=== PATIENT | female | born 1970 | race Two or more races ===

== ENCOUNTER 2016-04-16 05:24 | Emergency (ER) | payer MEDICAID ==
[2016-04-16] MEDS ORDERED: PHENAZOPYRIDINE 100 MG TABLET PO STA (05:30)
[2016-04-16] MEDS ORDERED: CEPHALEXIN 250 MG CAPSULE PO STA (05:30)
[2016-04-16] MEDS ORDERED: PHENAZOPYRIDINE 100 MG TABLET PO ONE (05:32)
[2016-04-16] MEDS ORDERED: CEPHALEXIN 250 MG CAPSULE PO ONE (05:32)
== END 2016-04-16 05:57 | disposition home or self-care (01) ==
DX: N39.0 Urinary tract infection, site not specified (principal); I10 Essential (primary) hypertension; E05.90 Thyrotoxicosis, unspecified without thyrotoxic crisis or storm
CPT/HCPCS: 81001; 81025; 99283; A9270

== ENCOUNTER 2016-07-28 08:10 | Outpatient (CLI) | payer MEDICAID ==
[2016-07-28 13:48] LABS: BASOPHILS # (AUTO) 0.1 10^3/uL (0.0-0.1); BASOPHILS % (AUTO) 0.9 %; EOSINOPHILS # (AUTO) 0.2 10^3/uL (0.0-0.7); EOSINOPHILS % (AUTO) 2.3 %; HCT - HEMATOCRIT 33.9 % (37.0-47.0); HGB - HEMOGLOBIN 11.3 g/dL (12.0-16.0); LYMPHOCYTES # (AUTO) 3.2 10^3/uL (1.5-3.5); LYMPHOCYTES % (AUTO) 45.3 %; MEAN CORPUSCULAR HEMOGLOBIN 23.3 pg (27.0-31.0); MEAN CORPUSCULAR HGB CONC 33.3 g/dL (32.0-36.0); MEAN CORPUSCULAR VOLUME 70.1 fL (81.0-99.0); MEAN PLATELET VOLUME 9.4 fL (7.9-10.8); MONOCYTES # (AUTO) 0.7 10^3/uL (0.0-1.0); MONOCYTES % (AUTO) 9.3 %; NEUTROPHILS % (AUTO) 42.2 %; RED BLOOD COUNT 4.83 10^6/uL (4.20-5.40); RED CELL DISTRIBUTION WIDTH 15.4 % (12.0-15.0); UNCORRECTED WHITE BLOOD COUNT 7.1 x10^3/uL; WHITE BLOOD COUNT 7.1 x10^3/uL (4.8-10.8)
[2016-07-28 13:59] LABS: ALBUMIN/GLOBULIN RATIO 1.4 (1.0-2.2); BILIRUBIN,TOTAL 0.6 mg/dL (0.2-1.0); BUN - BLOOD UREA NITROGEN 12 mg/dL (6-20); CARBON DIOXIDE - CO2 23 mmol/L (21-32); CHLORIDE 110 mmol/L (101-111); CHOL/HDL RATIO 3.4 (<4.4); CHOLESTEROL 187 mg/dL; CREATININE 0.7 mg/dL (0.4-1.0); GFR - MDRD 91 (>89); GLUCOSE 78 mg/dL (70-100); HDL CHOLESTEROL 55 mg/dL; POTASSIUM 3.6 mmol/L (3.5-5.0); SODIUM 139 mmol/L (135-145); TOTAL PROTEIN 6.5 g/dL (6.7-8.2); TRIGLYCERIDES 28 mg/dL
[2016-07-28 14:04] LABS: PLATELET ESTIMATE, MANUAL NORMAL (130-450,000) (NORMAL); PLATELET MORPHOLOGY NORMAL APPEARANCE (NORMAL)
[2016-07-28 14:27] LABS: THYROID STIMULATING HORMONE 1.01 uIU/mL (0.34-5.60)
[2016-07-28 14:32] LABS: LDL CHOLESTEROL,DIRECT 119 mg/dL
== END 2016-07-28 08:11 | disposition home or self-care (01) ==
LOC: LAB 08:10
PROVIDERS: ATTEND Family Medicine
DX: Z00.00 Encounter for general adult medical examination without abnormal findings (principal); R00.2 Palpitations; B19.20 Unspecified viral hepatitis C without hepatic coma; D56.3 Thalassemia minor
CPT/HCPCS: 36415; 80053; 80061; 84439; 84443; 85025

== ENCOUNTER 2016-11-07 08:00 | Outpatient (CLI) | payer MEDICAID ==
[2016-11-07 20:19] LABS: BILIRUBIN,DIRECT 0.1 mg/dL (0.1-0.5); BILIRUBIN,TOTAL 0.7 mg/dL (0.2-1.0); TOTAL PROTEIN 6.7 g/dL (6.7-8.2)
== END 2016-11-07 08:01 | disposition home or self-care (01) ==
LOC: LAB.N 08:00
PROVIDERS: ATTEND Internal Medicine Transplant Hepatology
DX: B18.2 Chronic viral hepatitis C (principal)
CPT/HCPCS: 36415; 80076; 87522

== ENCOUNTER 2017-09-17 19:14 | Emergency (ER) | payer MEDICAID ==
[2017-09-17] MEDS ORDERED: ONDANSETRON 4 MG/2 ML VIAL IVP STA (19:27)
[2017-09-17] MEDS ORDERED: SODIUM CHLORIDE 0.9% 1,000 ML IV ONE (19:27)
[2017-09-17 19:54] LABS: ALBUMIN 4.2 g/dL (3.2-5.5); ALBUMIN/GLOBULIN RATIO 1.1 (1.0-2.2); BILIRUBIN,TOTAL 0.7 mg/dL (0.2-1.0); CALCIUM 9.5 mg/dL (8.5-10.3); CREATININE 0.8 mg/dL (0.4-1.0); TOTAL PROTEIN 8.1 g/dL (6.7-8.2)
[2017-09-17] MEDS ORDERED: KETOROLAC 15 MG/ML VIAL IVP STA (20:03)
[2017-09-17] MEDS ORDERED: METOCLOPRAMIDE 10 MG/2 ML VIAL IVP STA (20:03)
--- NOTE | 2017-09-17 20:04 | ED Physician Documentation ---
PD HPI ABD PAIN - Stated complaint Stated Complaint: VOMITING - Chief complaint Chief Complaint: Abd Pain - History obtained from History obtained from: Patient - History of Present Illness Timing - onset: Last night (She abruptly started having vomiting and diarrhea with central abdominal cramping starting around midnight last night while finishing up [id number] it did not taste quite right. She has been vomiting ever since and feels severely nauseous. The diarrhea is abating. There is no fever and no recent travel.) Review of Systems Constitutional: denies: Fever, Chills Cardiac: denies: Chest pain / pressure, Palpitations Respiratory: denies: Dyspnea, Cough GI: denies: Hematemesis, Bloody / black stool PD PAST MEDICAL HISTORY - Past Medical History Cardiovascular: Hypertension, Arrhythmia Endocrine/Autoimmune: HyPERthyroidism Psych: Depression, Anxiety, Bipolar disorder - Past Surgical History Past Surgical History: No - Present Medications Home Medications: Ambulatory Orders Medication Instructions Recorded Confirmed Venlafaxine ER [Effexor ER] 150 mg PO DAILY 04/16/16 04/16/16 clonazePAM [KlonoPIN] 0.5 mg PO BID PRN 04/16/16 04/16/16 Dextroamphetamine/Amphetamine 09/17/17 [Adderall 10 mg Tablet] Loperamide [Imodium] 2 mg PO QID PRN #10 capsule 09/17/17 Ondansetron HCl [Zofran] 4 mg PO Q6H PRN #10 tablet 09/17/17 lamoTRIgine [LaMICtal] 200 mg ORAL BID 09/17/17 09/17/17 - Allergies Allergies/Adverse Reactions: Allergies Allergy/AdvReac Type Severity Reaction Status Date / Time iodine Allergy Rash Verified 09/17/17 19:19 sulfamethoxazole Allergy Itching Verified 09/17/17 19:19 [From Bactrim] trimethoprim [From Bactrim] Allergy Itching Verified 09/17/17 19:19 - Social History Does the pt smoke?: No Smoking Status: Never smoker Does the pt drink ETOH?: Yes Does the pt have substance abuse?: Yes Substance Use and Type: Heroin - Immunizations Immunizations are current?: Yes - POLST Patient has POLST: No PD ED PE NORMAL - Vitals Vital signs reviewed: Yes - General General: Alert and oriented X 3, No acute distress - Cardiac Cardiac: RRR, No murmur - Respiratory Respiratory: No respiratory distress, Clear bilaterally - Abdomen Abdomen: Soft, Non tender - Neuro Neuro: Alert and oriented X 3, Normal speech Results - Vitals Vitals: Vital Signs - 24 hr 09/17/17 09/17/17 19:18 20:20 Temperature 36.3 C L Heart Rate 69 59 L Respiratory 18 15 Rate Blood Pressure 117/71 115/73 O2 Saturation 100 100 Oxygen O2 Source Room air - Labs Labs: Laboratory Tests 09/17/17 19:38 Sodium 138 Potassium 3.4 L Chloride 101 Carbon Dioxide 25 Anion Gap 12.0 BUN 14 Creatinine 0.8 Estimated GFR (MDRD) 77 L Glucose 135 H Calcium 9.5 Total Bilirubin 0.7 AST 26 ALT 16 Alkaline Phosphatase 56 Total Protein 8.1 Albumin 4.2 Globulin 3.9 Albumin/Globulin Ratio 1.1 Lipase 21 L PD MEDICAL DECISION MAKING - ED course ED course: 37-year-old woman with a acute syndrome consistent with gastroenteritis. Benign belly. She was administered antiemetics and IV fluids with resolution of her symptoms and remained nontender prior to discharge on reexamination. She was administered p.o. potassium for slightly low potassium and passed an oral challenge. She was given appendicitis precautions but this seems unlikely at this juncture. - Sepsis Event Vital Signs: Vital Signs - 24 hr 09/17/17 09/17/17 19:18 20:20 Temperature 36.3 C L Heart Rate 69 59 L Respiratory 18 15 Rate Blood Pressure 117/71 115/73 O2 Saturation 100 100 Oxygen O2 Source Room air Departure - Departure Disposition: 01 Home, Self Care Clinical Impression: Gastroenteritis Condition: Good Instructions: ED Gastroenteritis Non Infec Prescriptions: Loperamide [Imodium] 2 mg PO QID PRN #10 capsule PRN Reason: Diarrhea Ondansetron HCl [Zofran] 4 mg PO Q6H PRN #10 tablet PRN Reason: Nausea / Vomiting Comments: Return in 12 hours if not better, anytime if worsening or if new symptoms develop, especially if fever. Discharge Date/Time: 09/17/17 21:11
[2017-09-17 20:21] VITALS: BP 115/73
[2017-09-17] MEDS ORDERED: POTASSIUM BICARB 25 MEQ TABLET PO STA (20:39)
[2017-09-17] MEDS ORDERED: ONDANSETRON ODT 4 MG Prepack 2 TL STA (20:47)
== END 2017-09-17 21:11 | disposition home or self-care (01) ==
LOC: ED 19:14
DX: K52.9 Noninfective gastroenteritis and colitis, unspecified (principal)
CPT/HCPCS: 36415; 80053; 83690; 96361; 96374; 96375; 99283; A9270; J2765

== ENCOUNTER 2017-11-03 08:00 | Outpatient (CLI) | payer MEDICAID ==
[2017-11-03 13:01] LABS: ALBUMIN 3.7 g/dL (3.2-5.5); ALBUMIN/GLOBULIN RATIO 1.2 (1.0-2.2); ALKALINE PHOSPHATASE 53 IU/L (42-121); ALT ALANINE AMINOTRANSFERASE 13 IU/L (10-60); AST ASPARTATE AMINOTRANSFERASE 18 IU/L (10-42); BILIRUBIN,TOTAL 0.5 mg/dL (0.2-1.0); BUN - BLOOD UREA NITROGEN 13 mg/dL (6-20); CALCIUM 8.7 mg/dL (8.5-10.3); CARBON DIOXIDE - CO2 23 mmol/L (21-32); CHLORIDE 109 mmol/L (101-111); CHOL/HDL RATIO 3.1 (<4.4); CHOLESTEROL 178 mg/dL; CREATININE 0.7 mg/dL (0.4-1.0); GFR - MDRD 90 (>89); GLUCOSE 103 mg/dL (70-100); HDL CHOLESTEROL 58 mg/dL; LDL CHOLESTEROL,CALCULATED 103 mg/dL; LDL/HDL RATIO 1.8 (<4.4); SODIUM 138 mmol/L (135-145); TOTAL PROTEIN 6.9 g/dL (6.7-8.2); VLDL CHOLESTEROL 17 mg/dL
[2017-11-03 13:10] LABS: BASOPHILS # (AUTO) 0.1 10^3/uL (0.0-0.1); BASOPHILS % (AUTO) 1.2 %; EOSINOPHILS # (AUTO) 0.2 10^3/uL (0.0-0.7); EOSINOPHILS % (AUTO) 3.2 %; HGB - HEMOGLOBIN 11.3 g/dL (12.0-16.0); LYMPHOCYTES # (AUTO) 3.3 10^3/uL (1.5-3.5); LYMPHOCYTES % (AUTO) 47.5 %; MEAN CORPUSCULAR HEMOGLOBIN 22.3 pg (27.0-31.0); MEAN CORPUSCULAR HGB CONC 32.3 g/dL (32.0-36.0); MEAN CORPUSCULAR VOLUME 69.1 fL (81.0-99.0); MONOCYTES # (AUTO) 0.8 10^3/uL (0.0-1.0); MONOCYTES % (AUTO) 10.8 %; NEUTROPHILS # (AUTO) 2.6 10^3/uL (1.5-6.6); NEUTROPHILS % (AUTO) 37.3 %; PLT - PLATELET COUNT 377 10^3/uL (130-450); RED BLOOD COUNT 5.04 10^6/uL (4.20-5.40); RED CELL DISTRIBUTION WIDTH 15.8 % (12.0-15.0)
[2017-11-03 13:37] LABS: RBC MORPHOLOGY (MULTIPLE) 3+ ANISOCYTOSIS (NORMAL)
== END 2017-11-03 08:01 | disposition home or self-care (01) ==
LOC: LAB.N 08:00
DX: F31.81 Bipolar II disorder (principal)
CPT/HCPCS: 36415; 80053; 80061; 83721; 84443; 85025

== ENCOUNTER 2018-01-29 08:00 | Outpatient (CLI) | payer MEDICAID ==
[2018-01-29 13:42] LABS: THYROID STIMULATING HORMONE 0.51 uIU/mL (0.34-5.60)
[2018-01-29 13:46] LABS: FREE T4 (FREE THYROXINE) 0.89 ng/dL (0.58-1.64)
== END 2018-01-29 08:01 | disposition home or self-care (01) ==
LOC: LAB.N 08:00
PROVIDERS: ATTEND Family Medicine
DX: E05.90 Thyrotoxicosis, unspecified without thyrotoxic crisis or storm (principal)
CPT/HCPCS: 36415; 81599; 84439; 84443; 84481; 86800

== ENCOUNTER 2018-02-26 10:29 | Outpatient (CLI) | payer MEDICAID ==
[2018-02-26 13:08] LABS: THYROID STIMULATING HORMONE 0.08 uIU/mL (0.34-5.60)
[2018-02-26 13:10] LABS: FREE T4 (FREE THYROXINE) 0.88 ng/dL (0.58-1.64)
[2018-03-01 11:36] LABS: THYROID PEROXIDASE ANTIBODIES <1 IU/mL (<9)
== END 2018-02-26 23:59 | disposition home or self-care (01) ==
LOC: LAB.N 10:29
PROVIDERS: ATTEND Family Medicine
DX: E05.90 Thyrotoxicosis, unspecified without thyrotoxic crisis or storm (principal)
CPT/HCPCS: 36415; 84439; 84443; 84481; 86376; 86800

== ENCOUNTER 2018-10-07 | Outpatient (CLI) | payer MEDICAID | END 2018-10-07 23:59 | disposition home or self-care (01) | DX: Z13.9 Encounter for screening, unspecified (principal) | CPT/HCPCS: 36415; 80053; 80061; 83721; 84443; 85025 ==

== ENCOUNTER 2018-11-22 14:27 | Outpatient (CLI) | payer MEDICAID ==
--- NOTE | 2018-11-23 12:27 | Mammography Report ---
Reason: ROUTINE MAMMO Procedure Date: 11/22/2018 Accession Number: [id number] / [id number] Procedure: MGN - Screening Mammo Dig Bilat CPT Code: FULL RESULT: EXAM: Screening Mammo Dig Bilat DATE: 11/22/2018 2:55 PM CLINICAL HISTORY: Routine screening TECHNIQUE: (B) - Bilateral CC and MLO views were obtained. COMPARISON: 08/22/2014 PARENCHYMAL PATTERN: (VD) - The breasts demonstrate extremely dense parenchyma bilaterally, limiting the sensitivity of mammography. FINDINGS: No significant interval change on the left. There are no suspicious masses, calcifications, or areas of distortion. On the right there is a 1 cm nodule in the 9:00 position 7 cm posterior to the nipple. This may have been present on the prior mammogram but obscured by the dense breast tissue. No suspicious architectural distortion, skin thickening or microcalcifications on the right. IMPRESSION: Incomplete examination right breast. BI-RADS category 0. Negative left breast. RECOMMENDATION: (ADDUS) - Targeted ultrasound recommended. Right breast BI-RADS CATEGORY: (0) - Incomplete Examination - need additional evaluation. STANDARD QUALIFYING STATEMENTS: 1. This examination was not reviewed with the aid of Computer-Aided Detection (CAD). 2. A negative or benign imaging report should not preclude biopsy if clinically suspicious findings are present. 3. Dense breasts may obscure an underlying neoplasm. 4. This examination was reviewed without the aid of 3D breast imaging (tomosynthesis).
== END 2018-11-22 14:28 | disposition home or self-care (01) ==
LOC: DI.N 14:27
PROVIDERS: ATTEND Nurse Practitioner Gerontology
DX: Z12.31 Encounter for screening mammogram for malignant neoplasm of breast (principal); R92.8 Other abnormal and inconclusive findings on diagnostic imaging of breast
CPT/HCPCS: 77067

== ENCOUNTER 2018-12-08 09:57 | Outpatient (CLI) | payer MEDICAID ==
--- NOTE | 2018-12-08 11:32 | Ultrasound Report ---
Reason: ABN MAMMO - RT SPECIAL VIEWS Procedure Date: 12/08/2018 Accession Number: [id number] / [id number] Procedure: US - Breast Unilateral Limited CPT Code: FULL RESULT: EXAM: Breast Unilateral Limited DATE: 12/08/2018 10:45 AM CLINICAL HISTORY: Call back right breast ultrasound to evaluate abnormal right breast finding on recent screening mammogram ? COMPARISON: EXAM: 11/22/2018, 08/22/2014 TECHNIQUE: Targeted ultrasound was performed of the right breast in the area of clinical concern at 9 o'clock at nipple +5 cm and periareolar right breast. ?Color Doppler was employed as appropriate. ? FINDINGS: In the area of mammographic concern (posterior 9:00 position nipple +5-6 cm) there is a sonographically confirmed nonappearing cyst measuring 5 x 3 x 7 mm diameter. No further workup for this finding is required. There is an incidental subareolar indeterminate but benign-appearing sharply marginated wider than tall nonvascular hypoechoic right breast mass measuring 6 x 4 x 6 mm diameter for which a six-month follow-up 3-D mammogram and targeted right breast ultrasound will be recommended.. IMPRESSION: BI-RADS Category 3: Probably benign RECOMMENDATIONS: Six-month follow-up RIGHT breast 3-D mammogram and targeted right breast ultrasound for subareolar probable fibroadenoma. RADIA
== END 2018-12-08 09:58 | disposition home or self-care (01) ==
LOC: DI 09:57
PROVIDERS: ATTEND Nurse Practitioner Gerontology
DX: R92.8 Other abnormal and inconclusive findings on diagnostic imaging of breast (principal)
CPT/HCPCS: 76642

== ENCOUNTER 2018-12-20 08:00 | Outpatient (CLI) | payer MEDICAID ==
[2018-12-20 19:23] LABS: HEMOGLOBIN A1C 0.48 g/dL; HEMOGLOBIN A1C % 5.5 % (4.6-6.2)
[2018-12-20 19:33] LABS: PROLACTIN 12.16 ng/mL
== END 2018-12-20 23:59 | disposition home or self-care (01) ==
LOC: LAB.N 08:00
PROVIDERS: ATTEND Nurse Practitioner Psychiatric/Mental Health
DX: F31.81 Bipolar II disorder (principal)
CPT/HCPCS: 36415; 82306; 82607; 83036; 84146

== ENCOUNTER 2019-05-03 14:19 | Outpatient (CLI) | payer MEDICAID ==
[2019-05-03 21:39] VITALS: BP 138/91
--- NOTE | 2019-05-03 21:39 | SLEEP CARE CONSULTATION ---
Information from patient questionnaire entered by Shaylee Anaya. I have reviewed and concur with the information entered by Shaylee Anaya. This document represents the service I personally performed and the decisions made by me, Eli Alanis MD, [facility]. History of Present Illness Reason for Visit: New patient Chief Complaint: reports: Insomnia, Unrefreshed sleep, Excessive daytime sleepiness, Frequent awakenings at night Duration of Symptoms: 23 years Usual bedtime: 2697-4666 Time it takes to fall asleep: 5-10 minutes Snores at night: Yes Observed to quit breathing while asleep: No (a few times) Sleeps alone due to snoring: No Number of times waking at night: 3-5 Reasons for waking at night: reports: Bathroom, Other (hunger, bad dreams, anxiety) Toss, Turn, or Twitch while sleeping: Yes Recalls having dreams: Yes Usually gets out of bed at: [id number] Feels refreshed in the morning: No Morning headache: No Sleepy or fatigued during the day: Yes Ever fallen asleep while driving: No Takes day naps: Yes Dreams during day naps: Yes Prior sleep studies: No Additional HPI information: I had the pleasure of seeing Ms. Sanchez today regarding the possibility of her having a sleep disorder. As you know, she is a 48 year old lady who complains of insomnia for 23 years. The patient tells me that she normally goes to bed around 7 - 11 pm, and it takes her approximately 10 - 20 minutes to fall asleep. She has been told that she snores occasionally at night. She has never been observed to stop breathing in her sleep. Her spouse sleeps in the same bed. She can recall waking up on the average of 3 - 5 times during the night. Most of the time she wakes up because of anxiety with palpitations. She has never awakened because of her own snoring, choking, or having to gasp for air. There is a lot of tossing and turning in her sleep. No somniloquy (sleep talking) or somnambulism (sleep walking). Generally she can recall having dreams. In the morning she usually gets up out of the bed around 3 - 6 a.m. not feeling refreshed nor rested. She usually does not have a morning headache. During the day she complains of feeling sleepy and fatigued. Her score on Jackson Sleepiness Scale is 11 out of 24. She has never fallen asleep while driving nor has had any accident due to sleepiness. She usually takes naps during the day. Upon falling asleep during the day she reports having dreams. She reports having impaired concentration during the day. Subjective Initial Jackson Sleepiness Scale score: 11 Past Medical History Past Medical History: reports: Claustrophobia, Anemia (borderline), Anxiety, Asthma (when sick), Depression, Mood disorder, Attention deficit, Other (PTSD complex, agoraphobia) Social History The patient's occupation is not employed. Patient is Single and lives in [place]. Have you smoked in the past 12 months: Yes Cigarettes per day (20/pack): 5 (or less) Years of smokin (off and on) Smoking Pack Years: 3.0 Alcohol use: No Caffeine use: Yes Caffeine amount and frequency: 1 cup coffee/day Family History Family history of sleep disordered breathing: No (all siblings have insomnia) Allergies and Home Medications Drug allergies reviewed: Yes (Bactrim and iodine) Home medication list reviewed: Yes (Adderall, Effexor, Ativan, lamotrigine, melatonin) Review of Systems Weight gain over past 5 years: 25 Cardiovascular: reports: palpitations Respiratory: denies: shortness of breath, wheeze, sputum production, chronic cough, other Gastrointestinal: reports: heartburn Urinary: denies: incontinence, frequency, urgency, impotence, other Neurological: denies: headaches, seizure, head trauma, disorientation, speech dysfunction, gait or balance problems, fainting or unconsciousness, other Psychiatric: reports: Attention Deficit Hyperactivity, anxiety, depression, mood disorder, claustrophobia, other (PTSD complex, insomnia, transient, panic disorder) Ear/Nose/Throat: denies: nasal congestion, sinus problems, nose bleeds, dry mouth/throat, hoarseness, injury to nose, tonsillectomy, wisdom teeth removed, other Endocrine: reports: too hot or cold Musculoskeletal: denies: joint pain, neck pain, back pain, joint swelling, muscle pain or cramping, mobility problems, other Immunologic: denies: sneezing, rash, itching, allergies to food or environment, other Physical Exam Vital signs obtained and entered by: Dr. Alanis Blood Pressure: 138/91 Cuff size: regular Heart Rate: 88 O2 Saturation: 99 Height: 5 ft 3 in Weight: 160 lb Body Mass Index: 28.3 BMI Classification: Overweight Neck circumference: 13.5 Mood/affect: normal HEENT: No craniofacial malformation Nostrils: patent to airflow Turbinates: normal Septum: midline Mouth and throat: normal Soft palate: normal Hard palate: normal Uvula: normal Uvula visualization: 100% Mallampati Class I Tongue: normal in size Tonsils: small Chin and jaw: normal size and position Neck: normal w/o lymphadenopathy or thyromegaly Heart: regular rate and rhythm Lungs: clear bilaterally Abdomen: soft, non-tender Extremities: no edema or clubbing Neurologic: intact, no focal deficits Impression and Plan IMPRESSION: 1. Possible Obstructive Sleep Apnea-Hypopnea Syndrome, as suggested by history of snoring, frequent awakenings during the night, unrefreshed sleep, cognitive impairment, and daytime hypersomnolence. Pathophysiology of sleep-disordered breathing was discussed. I recommend proceeding to polysomnography for further evaluation. I informed the patient of what the sleep studies involve and after some discussion, she agreed to proceed. 2. Insomnia, due to underlying psychiatric disorders and excessive time spent in bed due to her having to go to bed early with her at 7 pm. Treatment is to reduce time spent in bed to the normal 8 hours, which means she should get out of bed at 3 am every day if she wants to go to bed at 7 pm. Plan: 1. Schedule an in-laboratory polysomnography or home sleep apnea test (HSAT). 2. Avoid long distance driving or when feeling sleepy. 3. Avoid alcohol, sedative and muscle relaxant around bedtime. 4. Quit smoking, at least in the evening. 5. Return in 1 to 2 weeks after the study to discuss results and initiate therapy. I spent 100% of this visit face to face with the patient with greater than 50% of this was spent time counseling the patient and coordination of care.
== END 2019-05-03 14:20 | disposition home or self-care (01) ==
LOC: SC 14:19
PROVIDERS: ATTEND Internal Medicine Pulmonary Disease
DX: G47.10 Hypersomnia, unspecified (principal); G47.8 Other sleep disorders; R06.83 Snoring; R41.89 Other symptoms and signs involving cognitive functions and awareness; G47.00 Insomnia, unspecified; E66.3 Overweight; Z68.28 Body mass index [BMI] 28.0-28.9, adult; F17.210 Nicotine dependence, cigarettes, uncomplicated
CPT/HCPCS: 99203; 99212

== ENCOUNTER 2019-05-15 19:30 | Outpatient (CLI) | payer MEDICAID | END 2019-05-15 23:59 | LOC: SC 19:30 | PROVIDERS: ATTEND Internal Medicine Pulmonary Disease | DX: G47.8 Other sleep disorders (principal); G47.10 Hypersomnia, unspecified; G47.00 Insomnia, unspecified | CPT/HCPCS: 95806 ==

== ENCOUNTER 2019-06-07 10:59 | Outpatient (CLI) | payer MEDICAID ==
--- NOTE | 2019-06-07 10:55 | SLEEP CARE CONSULTATION ---
Information from patient questionnaire entered by Jeri Victor. I have reviewed and concur with the information entered by Jeri Victor. This document represents the service I personally performed and the decisions made by me, Eli Alanis MD, [facility]. History of Present Illness Initial Hext Sleepiness Scale score: 11 Additional HPI information: To minimize the risk of COVID-19 exposure, we have the option to conduct your visit with me over the phone. I will be able to discuss your health and offer medical advice. If you agree, we will bill your insurance. Do you agree to this telephone service: YES. HPI: Ms. Sanchez returned for follow up of the home sleep apnea test (HSAT) she had on 05/15/2019. The polysomnography showed that the test was normal. There was no evidence of sleep disordered breathing or hypoxemia. Heart rate was within normal limits. The patient was informed of these findings. I explained to her that the test was normal. The patient states that she is sleeping better and does not snore. Allergies and Home Medications Drug allergies reviewed: Yes Home medication list reviewed: Yes Review of Systems Review of systems same as previous: Yes Physical Exam Height: 5 ft 3 in Impression and Plan IMPRESSION: 1. Insomnia, improved. Previously it was due to excessive time spent in bed (the patient tried to go to bed early at 7 pm with her but did not get out of bed until 6 am). I reminded her to spend no more than 8 hours in bed. PLAN: 1. Maintain a regular wake up time and spend no more than 8 hours in bed at night. Avoid naps. 2. Quit smoking cigarettes 3. Return for follow up on as needed basis. I spent 100% of the 5 minute phone call with the patient with greater than 50% of this was spent time counseling the patient and coordination of care.
== END 2019-06-07 11:00 | disposition home or self-care (01) ==
LOC: SC 10:59
PROVIDERS: ATTEND Internal Medicine Pulmonary Disease
DX: G47.00 Insomnia, unspecified (principal)

== ENCOUNTER 2019-11-04 14:34 | Outpatient (CLI) | payer MEDICAID ==
--- NOTE | 2019-11-07 10:34 | Ultrasound Report ---
LIMITED ULTRASOUND OF RIGHT BREAST: 11/04/2019 CLINICAL: Patient returns for a 6 month follow up of the right breast. Comparison is made to exam dated: 12/08/2018 ultrasound - [facility]. Color flow ultrasound of the right breast 9 o'clock region was performed. Melendez scale images of the r eal-time examination were reviewed. There is a 0.7 cm x 0.5 cm x 0.3 cm wider than tall oval mass in the right breast at 9 o'clock resource teacher ior depth 5 cm from the nipple. This oval mass is hypoechoic with a well-defined boundary. This abn ormality is not significantly changed. Color flow imaging demonstrates that there is no vascularity present. There also is a 0.6 cm x 0.4 cm x 0.6 cm oval cyst in the right breast at 9 o'clock in the retroareol ar region. This oval cyst is anechoic. This abnormality is not significantly changed. Color flow i maging demonstrates that there is no vascularity present. IMPRESSION: PROBABLY BENIGN The 0.7 cm x 0.5 cm x 0.3 cm wider than tall oval mass in the right breast at 9 o'clock posterior dep th most likely is a fibroadenoma and is probably benign. The 0.6 cm x 0.4 cm x 0.6 cm oval cyst in the right breast at 9 o'clock in the retroareolar region is consistent with a simple cyst and is benign. A follow-up bilateral mammogram and a right breast ultrasound in 12 months is recommended to document two years of stability. Findings and recommendations were conveyed to the patient during today's visit. This exam was interpreted at Station ID: [id number]. Electronically Signed By: Frank Dye M.D. aty/:11/04/2019 17:29:45 Ultrasound BI-RADS: 3 Probably benign BI-RADS CATEGORY: (3) - 3 Mammo and [place] [id number] 12 month follow-up LATERALITY: (B)
--- NOTE | 2019-11-07 10:34 | Mammography Report ---
BILATERAL DIGITAL DIAGNOSTIC MAMMOGRAM 3D/2D: 11/04/2019 CLINICAL: 6 month follow-up of cysts. Patient returns today to evaluate a density in the right breast . Patient returns for a 6 month follow up of bilateral breasts. Comparison is made to exams dated: 12/08/2018 ultrasound, 11/22/2018 mammogram, and 08/22/2014 mammogra [facility]. The tissue of both breasts is heterogeneously dense. This may lowe r the sensitivity of mammography. There is a 0.8 cm oval mass in the right breast at 9 o'clock posterior depth. This is not significan tly changed and correlates with previous ultrasound findings. No other significant masses, calcifications, or other findings are seen in either breast. IMPRESSION: INCOMPLETE: NEEDS ADDITIONAL IMAGING EVALUATION The 0.8 cm oval mass in the right breast likely represents a fibroadenoma but remains indeterminate. An ultrasound is recommended to further evaluate and is scheduled to immediately follow this exam. This exam was interpreted at Station ID: [id number]. NOTE: For mammograms, a report in lay terms will be sent to the patient. Approximately 15% of breast malignancies will not be visualized mammographically. In the management of a palpable breast mass, a negative mammogram must not discourage biopsy of a clinically suspicious lesion. Electronically Signed By: Frank Dye M.D. aty/:11/04/2019 17:25:39 ACR BI-RADS Category 0: Incomplete [id number] PARENCHYMAL PATTERN: (D) - The breast(s) demonstrate(s) heterogeneously dense fibroglandular ross lucero. BI-RADS CATEGORY: (0) - 0 Ultrasound [id number] Immediate follow-up LATERALITY: (R)
== END 2019-11-04 14:35 | disposition home or self-care (01) ==
LOC: DI 14:34
PROVIDERS: ATTEND Nurse Practitioner
DX: N60.01 Solitary cyst of right breast (principal); N63.15 Unspecified lump in the right breast, overlapping quadrants
CPT/HCPCS: 76642; 77066

== ENCOUNTER 2020-01-31 12:45 | Outpatient (CLI) | payer MEDICAID | END 2020-01-31 12:46 | disposition home or self-care (01) | LOC: COV 12:45 | PROVIDERS: ATTEND Family Medicine | DX: R05 Cough (principal); M79.10 Myalgia, unspecified site; R53.83 Other fatigue; R68.83 Chills (without fever); R09.81 Nasal congestion; R11.2 Nausea with vomiting, unspecified; Z20.828 Contact with and (suspected) exposure to other viral communicable diseases ==

== ENCOUNTER 2021-02-15 09:23 | Outpatient (CLI) | payer MEDICAID, OTHER | END 2021-02-15 23:59 | disposition home or self-care (01) | LOC: LAB.N 09:23 | PROVIDERS: ATTEND Family Medicine | DX: R30.0 Dysuria (principal) | CPT/HCPCS: 87077; 87086; 87181 ==